=== PATIENT | male | born 1960 | race Caucasian/White ===

== ENCOUNTER 2023-02-13 14:00 | Outpatient (RCR) | payer MEDICAID, SELFPAY ==
--- NOTE | 2023-01-01 16:51 | [facility].PTOPWND ---
Rehab Outpt Wound Evaluation Rehab OP Wound Evaluation Start: 01/01/23 11:36 Freq: Status: Active Protocol: Document 01/01/23 16:42 ZACHARY (Rec: 01/01/23 16:51 [email or web address] [id number]) E-signed By Lenin Das, PT Subjective/History History History This is the initial PT eval for Casper Gambino, 62 yowm who presents with c/o B LE swelling for many years. He states, When I was in my fifties, I fell and broke this left leg and it never has stopped swelling since then. Pt reports significant pain at it's worst, but no pain at rest currently. He has PMH of schizophrenia, HTN, and DM. Subjective Subjective Currently 0/10 pain, at worst 9/10. TTP: 1/4 noted to B lower legs. 2+ pitting edema noted to R foot and L lower leg from upper calf distally. Significant erythema noted to L lower leg. Lymphedema Eval Classification of Lymphedema Secondary Lymphedema Yes Post Traumatic Lymphedema Yes Stemmer's sign Stemmer's Sign yes Stage of Lymphedema Lymphedema stages Stage II (Pitting edema, increased fibrosis w/ decreased pitting) Skin Changes Dry Skin Yes Taut, Shiny Skin Yes Skin Folds Yes Redness Yes Brittle Uneven Nails Yes Discoloration of Skin Yes Other Changes Yes Pain Scale Pain Scale (0-10) 9 Affected Extremities Areas Affected by Lymphedema/Edema Right Lower Extremity,Left Lower Extremity Manual Lymphatic Drainage Treatment Area MLD Treatment Area Right Lower Extremity,Left Lower Extremity Wound Problems/Impairments Impairments Problems/Impairmments Palpation Tenderness,Impaired Range of Motion,Impaired Strength,Impaired Endurance, Impaired Walking,Impaired Standing,Impaired Dressing, Impaired Shower/Bathing, Impaired Household Care, Increased Edema,Lymphedema Present,Subjective C/O Pain,
--- NOTE | 2023-02-07 15:40 | [facility].RHREAS ---
Rehab Reassessment Rehab OP Re-assessment Start: 01/01/23 11:36 Freq: Status: Active Protocol: Document 02/07/23 15:33 ZACHARY (Rec: 02/07/23 15:40 PHOHORTENCIA [id number]) E-signed By Lenin Das, PT Rehab Re-assessment Subjective Subjective Pt reports, My legs are still really swollen doc. Continues to c/o pain in B LE at worst 7/10. Currently no pain though. Pt has not bee present for treatment in ~ 2 wks. Objective Objective Notes Circumferential measurements: L LE total is 189.3 cm which is + 1.4 cm since IE. R LE total is 174.8 cm which is +1.1 cm since IE. TTP: 1/ B lower legs. Mild erythema noted to L lower leg. Assessment Progress Assessment Slower Than Expected Assessment Notes Pt has shown no appreciable changes in B LE edema at this time. Pain is slightly better, but edema continues to effect pt gait. Pt instructed in need to increase keep appointments 1-2 x/wk to allow for proper treatment. He continues to need skilled intervention to return to prior level of function. Patient goals met none Goals Not Met ST,2,3,4 LT,2,3,4,5 ,6,7,8,9 Plan Plan Continue per initial POC. Frequency of Therapy 1-2 x/wk Duration of therapy 4 wks Time and Billing Re-Eval Time 14 Re-Eval Billing Units 1 PHYSICIAN CERTIFICATION: I certify the specified therapy services for Casper Gambino are required, authorized, and reviewed every 30 days.
== END 2023-02-13 14:05 | disposition home or self-care (01) ==
LOC: PT 14:00
PROVIDERS: PCP Emergency Medicine; Visit Provider Emergency Medicine
DX: I89.0 Lymphedema, not elsewhere classified (principal)
CPT/HCPCS: 97140; 97163; 97164